=== PATIENT | female | born 2000 | race Caucasian/White ===

== ENCOUNTER → 2021-07-09 16:20 | Observation (INO) | END | disposition home or self-care (01) | LOC: 1NENULAB | PROVIDERS: ADMIT Registered Nurse; ATTEND Registered Nurse ==

== ENCOUNTER → 2021-09-28 21:25 | Observation (INO) ==
[2021-09-28 20:40] LABS: Bacteria,Urine Few per hpf (None-Few); Bilirubin,Urine Negative (Negative); Blood,Urine Large (Negative); Clarity,Urine Turbid (Clear); Color,Urine Light-Brown (Yellow); Glucose,Urine (UA) Normal (Normal); Ketones,Urine Negative (Negative); Leukocyte Esterase,Urine Negative (Negative); Mucus,Urine Few per lpf (None-Few); Nitrite,Urine Negative (Negative); PH,Urine 6.5 pH Units (5.0-8.0); Protein,Urine Trace mg/dL (Neg-Trace); RBC,Urine TNTC per hpf (0-3); Specific Gravity,Urine 1.007 (1.010-1.025); Squamous Epithelial Cell,Urine Few per hpf (None-Few); Urobilinogen,Urine Normal (Normal); WBC,Urine 15-30 per hpf (0-3)
[~2021-09-28 21:25] MED LIST: Nitrofurantoin (BID) 100 MG CAPSULE PO SCH
== END | disposition home or self-care (01) ==
LOC: 1NENULAB
PROVIDERS: ADMIT Advanced Practice Midwife; ATTEND Advanced Practice Midwife

== ENCOUNTER → 2021-10-17 01:05 | Observation (INO) ==
[2021-10-17 00:38] LABS: Bilirubin,Urine Negative (Negative); Blood,Urine Negative (Negative); Clarity,Urine Clear (Clear); Color,Urine Light-Yellow (Yellow); Glucose,Urine (UA) Normal (Normal); Ketones,Urine 10 mg/dL (Negative); Leukocyte Esterase,Urine Negative (Negative); Nitrite,Urine Negative (Negative); PH,Urine 6.5 pH Units (5.0-8.0); Protein,Urine Trace mg/dL (Neg-Trace); Specific Gravity,Urine 1.017 (1.010-1.025); Urobilinogen,Urine Normal (Normal)
== END | disposition home or self-care (01) ==
LOC: 1NENULAB
PROVIDERS: ADMIT Advanced Practice Midwife; ATTEND Advanced Practice Midwife

== ENCOUNTER 2021-11-09 07:51 | Inpatient (IN) ==
[2021-11-09] MEDS ORDERED: Metoclopramide 10 MG/2 ML VIAL IVP PRN (08:16)
[2021-11-09] MEDS ORDERED: Famotidine 20 MG/2 ML VIAL IVP PRN (08:16)
[2021-11-09] MEDS ORDERED: Naloxone 0.4 MG/ML INJ IVP PRN (08:16)
[2021-11-09] MEDS ORDERED: Ringers Solution, Lactated 1,000 ML IVC SCH (08:30)
[2021-11-09 09:23] LABS: Basophils % 0.4 %; Eosinophils # 0.1 K/mcL (0.0-0.6); Eosinophils % 1.1 %; Hematocrit 34.4 % (35.3-44.9); Hemoglobin 11.5 g/dL (11.5-15.4); Immature Granulocytes % 0.5 % (0-4); Lymphocytes # 1.4 K/mcL (0.6-4.6); Lymphocytes % 12.1 %; Mean Corpuscular HGB Conc 33.4 g/dL (31.6-35.5); Mean Corpuscular Hemoglobin 27.7 pg (28.0-33.3); Mean Corpuscular Volume 82.9 fL (83.0-100.0); Mean Platelet Volume 12.6 fL (9.4-12.4); Monocytes # 1.3 K/mcL (0.0-1.3); Monocytes % 11.9 %; Neutrophils # 8.4 K/mcL (1.6-8.9); Platelet Count 125 K/mcL (140-400); Red Blood Count 4.15 M/mcL (3.82-4.97); Red Cell Distribution Width 13.7 % (11.5-14.5); White Blood Count 11.3 K/mcL (4.3-11.1)
[2021-11-09 09:27] LABS: Amphetamine Screen,Urine Negative ng/mL (Cutoff=1000); Barbiturate Screen,Urine Negative ng/mL (Cutoff=200); Benzodiazepines Screen,Urine Negative ng/mL (Cutoff=200); Cannabinoid Screen,Urine Negative ng/mL (Cutoff = 50); Cocaine Screen,Urine Negative ng/mL (Cutoff= 300); Opiate Screen,Urine Negative ng/mL (Cutoff=300); Phencyclidine Screen,Urine Negative ng/mL (Cutoff=25)
[2021-11-09 09:47] LABS: Influenza A PCR Negative (Negative); Influenza B PCR Negative (Negative); Resp. Syncytial Virus PCR Negative (Negative)
[2021-11-09 09:51] LABS: SARS-CoV-2 by PCR (In House) Negative (Negative)
[2021-11-09] MEDS: *HR* Nalbuphine 10 MG/ML AMPUL IV PRN (13:17)
[2021-11-09] MEDS: miSOPROStoL 25 MCG TABLET PO PRN ×2 (16:41→20:46)
[2021-11-10] MEDS ORDERED: Oxytocin 30 UNIT/503 ML BAG IVC SCH ×2 (02:15→22:46)
[2021-11-10] MEDS: *HR* Nalbuphine 10 MG/ML AMPUL IV PRN (11:12)
[2021-11-10] MEDS ORDERED: EPHEDrine 50 MG/ML VIAL IVP PRN (13:37)
[2021-11-10] MEDS ORDERED: Epidural Premix (fent/bupiv) 110 ML EP ONE (13:41)
[2021-11-10] MEDS ORDERED: Epidural Premix (fent/bupiv) 110 ML EP SCH (13:45)
[2021-11-10] MEDS ORDERED: Ondansetron 4 MG/2 ML VIAL ONE (14:50)
[2021-11-10] MEDS ORDERED: Methylergonovine 0.2 MG/ML AMPUL IM ONE (19:44)
[2021-11-10] MEDS ORDERED: Ondansetron ODT 4 MG TAB.RAPDIS SL PRN (22:46)
[2021-11-10] MEDS ORDERED: Lanolin 7 G OINT...G. TP PRN (22:46)
[2021-11-10] MEDS ORDERED: Benzocaine/Menthol 56 GM AEROSOL SPRAY TP PRN (22:46)
[2021-11-11] MEDS: Ibuprofen 600 MG TABLET PO SCH ×3 (00:42→16:52)
[2021-11-11] MEDS: Acetaminophen 325 MG TABLET PO SCH ×3 (00:42→16:52)
[2021-11-11 04:19] LABS: Basophils % 0.3 %; Eosinophils % 0.3 %; Hematocrit 30.5 % (35.3-44.9); Hemoglobin 10.7 g/dL (11.5-15.4); Immature Granulocytes % 0.6 % (0-4); Immature Platelets 18.5 % (1.1-6.1); Lymphocytes # 1.3 K/mcL (0.6-4.6); Lymphocytes % 8.2 %; Mean Corpuscular HGB Conc 35.1 g/dL (31.6-35.5); Mean Corpuscular Hemoglobin 28.5 pg (28.0-33.3); Mean Corpuscular Volume 81.1 fL (83.0-100.0); Mean Platelet Volume 13.3 fL (9.4-12.4); Monocytes # 1.9 K/mcL (0.0-1.3); Monocytes % 11.9 %; Red Blood Count 3.76 M/mcL (3.82-4.97); Red Cell Distribution Width 13.7 % (11.5-14.5); Segmented Neutrophils % 78.7 %; White Blood Count 15.7 K/mcL (4.3-11.1)
[2021-11-11 04:20] LABS: Basophils # 0.1 K/mcL (0.0-0.2); Eosinophils # 0.1 K/mcL (0.0-0.6); Neutrophils # 12.4 K/mcL (1.6-8.9); Platelet Count 92 K/mcL (140-400)
[2021-11-11] MEDS ORDERED: Prenatal Vit/FA 1 EACH TABLET PO SCH (09:00)
[2021-11-11] MEDS ORDERED: Famotidine 20 MG TABLET PO ONE (12:50)
[2021-11-11 15:32] VITALS: O2SAT 99
[2021-11-11 19:42] VITALS: BP 122/72; PULSE 80; TEMP 98.1
== END 2021-11-11 19:45 | disposition home or self-care (01) | DRG 560 ==
LOC: 1NENULAB 07:51 → 1NENUOBS 11-10 23:03
PROVIDERS: ADMIT Registered Nurse; ATTEND Registered Nurse